=== PATIENT | female | born 1975 | race Caucasian/White ===

== ENCOUNTER 2017-08-12 18:59 | Emergency (ER) | payer MEDICAID ==
[2017-08-12 19:12] VITALS: BP 147/74; PULSE 79; RESP 18; TEMP 97.9; O2SAT 100
[2017-08-12] MEDS ORDERED: REME15TA PO (19:20)
[2017-08-12] MEDS ORDERED: PAXI30TA7 PO (19:20)
[2017-08-12] MEDS ORDERED: CLON1 PO (19:20)
[2017-08-12] MEDS ORDERED: TRAZ50TA12 PO (19:20)
[2017-08-12 19:51] LABS: AUTOMATED NEUTROPHIL # 8.6 TH/MM3 (1.8-7.7); BASOPHIL % 0.4 % (0.0-2.0); EOSINOPHIL % 0.1 % (0.0-4.0); HEMATOCRIT 40.4 % (35.0-46.0); HEMOGLOBIN 13.2 GM/DL (11.6-15.3); LYMPHOCYTE # 1.3 TH/MM3 (1.0-4.8); MEAN CELL VOLUME 88.6 FL (80.0-100.0); MEAN CORPUSCULAR HGB CONC 32.7 % (32.0-36.0); MEAN PLATELET VOLUME 8.5 FL (7.0-11.0); MONO % 7.6 % (0.0-8.0); MONOCYTE # 0.8 TH/MM3 (0-0.9); NEUT % 79.9 % (16.0-70.0); PLATELET COUNT 258 TH/MM3 (150-450); RED BLOOD COUNT 4.56 MIL/MM3 (4.00-5.30); RED CELL DISTRIBUTION WIDTH 15.2 % (11.6-17.2); WHITE BLOOD COUNT 10.7 TH/MM3 (4.0-11.0)
[2017-08-12 19:54] VITALS: BP 139/88; PULSE 72; RESP 16; O2SAT 99
[2017-08-12 20:03] LABS: BICARBONATE 23.1 MEQ/L (21.0-32.0); BLOOD UREA NITROGEN 9 MG/DL (7-18); CALCIUM 8.6 MG/DL (8.5-10.1); CHLORIDE 99 MEQ/L (98-107); GLOMERULAR FILTRATION RATE 79 ML/MIN (>89); GLUCOSE,RANDOM 77 MG/DL (74-106); SODIUM (NA) 134 MEQ/L (136-145)
[2017-08-12 20:09] LABS: TROPONIN I LESS THAN 0.02 NG/ML (0.02-0.05)
[2017-08-12] MEDS ORDERED: POTASSIUM CHLORIDE 10 MEQ CONTROLLED RELEASE TAB PO ONE (20:15)
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
[2017-08-12 21:10] LABS: ALBUMIN 4.2 GM/DL (3.4-5.0); ALT (GPT) 22 U/L (10-53); AST (GOT) 27 U/L (15-37); BICARBONATE 22.1 MEQ/L (21.0-32.0); BLOOD UREA NITROGEN 9 MG/DL (7-18); CALCIUM 8.6 MG/DL (8.5-10.1); CHLORIDE 99 MEQ/L (98-107); CREATININE 0.81 MG/DL (0.50-1.00); GLOMERULAR FILTRATION RATE 78 ML/MIN (>89); GLUCOSE,RANDOM 75 MG/DL (74-106); SODIUM (NA) 135 MEQ/L (136-145)
[2017-08-12 21:13] LABS: ALKALINE PHOSPHATASE 97 U/L (45-117); TOTAL BILIRUBIN ADULT 0.4 MG/DL (0.2-1.0); TOTAL PROTEIN 7.5 GM/DL (6.4-8.2)
--- NOTE | 2017-08-12 21:58 | RADRPT ---
EXAM DATE/TIME: 08/12/2017 20:47 [place] COMPARISON: No previous studies available for comparison. INDICATIONS : Heart Palpitations MEDICAL HISTORY : None. SURGICAL HISTORY : None. ENCOUNTER: Initial ACUITY: 1 day PAIN SCORE: 6/10 LOCATION: Bilateral chest FINDINGS: A single view of the chest demonstrates the lungs to be symmetrically aerated without evidence of mas s, infiltrate or effusion. The cardiomediastinal contours are unremarkable. Osseous structures are intact. CONCLUSION: Normal one view chest x-ray. Clay Hines MD on August 12, 2017 at 21:55 Board Certified Radiologist. This report was verified electronically.
[2017-08-13] MEDS ORDERED: clonazePAM 1 MG TAB PO ONE (02:00)
[2017-08-13 02:09] LABS: BACTERIA, URINE MANY /hpf; BILIRUBIN, URINE NEG (NEG); BLOOD, URINE TRACE (NEG); GLUCOSE,URINE NEG (NEG); KETONE, URINE 40 mg/dL (NEG); MUCUS URINE FEW /lpf (OCC); NITRITE,URINE NEG (NEG); SQUAMOUS EPITHELIAL CELL URINE 3 /hpf (0-5); URINE COLOR YELLOW (YELLW/STRAW); URINE LEUKOCYTE ESTERASE LARGE (NEG)
[2017-08-13] MEDS ORDERED: IBUPROFEN 600 MG TAB PO ONE (02:15)
[2017-08-13] MEDS ORDERED: SULFAMETHOXAZOLE-TRIMETHOPRIM DS 800-160 MG TAB PO ONE (02:30)
[2017-08-13] MEDS ORDERED: ONDANSETRON HCL 4 MG/2 ML VIAL IV PUSH ONE (05:00)
[2017-08-13] MEDS ORDERED: traZODone HCL 50 MG TAB PO ONE (05:00)
[2017-08-13] MEDS ORDERED: ONDANSETRON ODT 4 MG TAB PO ONE (05:15)
[2017-08-13 08:59] VITALS: BP 134/86; PULSE 67; RESP 15; TEMP 98.1; O2SAT 98
[2017-08-13 13:41] VITALS: BP 142/82; PULSE 78; RESP 18; O2SAT 96
[2017-08-13] MEDS ORDERED: NICOTINE 21 MG/24 HR PATCH T-DERMAL ONE (15:00)
--- NOTE | 2017-08-13 17:14 | EKG ---
Date Performed: 08/12/2017 Time Performed: 19:36:39 PTAGE: 42 years EKG: Sinus rhythm WITH SINUS ARRHYTHMIA PROLONGED QT INTERVAL ABNORMAL ECG NO PREVIOUS TRACING DOCTOR: Efra Ramirez Interpretating Date/Time 08/13/2017 17:12:33
[2017-08-14 07:12] VITALS: BP 133/72; PULSE 92; RESP 16; TEMP 100.5; O2SAT 96
[2017-08-14] MEDS ORDERED: clonazePAM 1 MG TAB PO ONE ×2 (09:45→14:30)
[2017-08-14] MEDS ORDERED: PARoxetine HCL 20 MG TAB PO ONE (09:45)
[2017-08-14 14:15] VITALS: BP 122/74; PULSE 99; RESP 18; TEMP 98.1; O2SAT 96
--- NOTE | 2017-08-14 14:30 | PD ---
History of Present Illness Chief Complaint: Chest Pain Time Seen by Provider: 14:15 Travel History International Travel<30 Days: No Contact w/Intl Traveler<30days: No Known affected area: No Legal Status Legal Status: Voluntary History of Present Illness: 42-year-old presents after going to the airport and claiming she wanted to shoot herself in the head. Patient is drug seeking at this time, requesting 1 mg of Klonopin because she usually takes it 3 times a day, even though she was drinking alcohol with it yesterday. Patient has parents who live nearby and the boyfriend in [place] who she says will pick her up. She denies any suicidal or homicidal ideation, plan or intent at this moment but states she did make the threat at the airport. She takes other medicines in addition to the benzodiazepines, including Paxil, Neurontin, etc. When confronted with the fact that she was drinking at the airport, the patient's excuse was that she doesn't usually drink like that. This physician offered her transportation to [facility] for alcohol abuse treatment but the patient declines. She is willing to go to her parents and back to [place] after receiving 1 mg of Klonopin. Cognition is intact and she has no psychotic symptoms. She is dom for safety and she is competent to do so. [facility] Past Medical History Anxiety: Yes ?: Not Past Surgical History Surgical History: No Previous Surgery Psychiatric History Psychiatric History Hx Psychiatric Treatment: Patient is disinclined to provide psychiatric history but does give the name of her provider who has her on current psychotropic medicines. This person is in the [place] area. History of Inpatient Treatment: No Guns or firearms in home: No Social History Hx Alcohol Use: Yes Hx Tobacco Use: Yes Hx Substance Use: Yes Substance Use Type: Marijuana, Cocaine, LSD-Mescaline Other Substances Used: Patient states she "experimented with many drugs " during college. Hx of Substance Use Treatment: No Allergies-Medications (Allergen,Severity, Reaction): Coded Allergies: No Known Allergies (Verified Allergy, Unknown, 08/12/17) Reported Meds & Prescriptions Reported Meds & Active Scripts Active Reported Klonopin (Clonazepam) 1 Mg Tab 1 Mg PO BID Remeron (Mirtazapine) 15 Mg Tab 15 Mg PO HS Trazodone (Trazodone HCl) 50 Mg Tab 50 Mg PO HS Paxil (Paroxetine HCl) 30 Mg Tab 30 Mg PO DAILY Review of Systems Except as stated in HPI: all other systems reviewed are Neg Mental Status Examination Appearance: Appropriate Consciousness: Alert Orientation: x4 Motor Activity: Normal gait Speech: Unremarkable Language: Adequate Fund of Knowledge: Adequate Attention and Concentration: Adequate Memory: Unremarkable Mood: Appropriate Affect: Appropriate Thought Process & Associations: Intact Thought Content: Appropriate Hallucination Type: None Delusion Type: None Suicidal Ideation: No Suicidal Plan: No Suicidal Intention: No Homicidal Ideation: No Homicidal Plan: No Homicidal Intention: No Insight: Adequate Judgment: Adequate MDM Medical Decision Making Medical Record Reviewed: Yes Assessment/Plan Patient interviewed at bedside. Electronic medical record reviewed. Case discussed with nurse Beckwith. This physician does not feel the patient meets [place]erra act criteria or criteria for psychiatric hospitalization. As stated above , the patient comes across as drug seeking and manipulative. Orders Orders Nicotine 21 Mg Patch.24 Hr (Habitrol 21 (08/13/17 15:00) Diet Regular Basic (08/14/17 Breakfast) Clonazepam (Klonopin) (08/14/17 09:45) Paroxetine (Paxil) (08/14/17 09:45) Diet Regular Basic (08/14/17 Lunch) Clonazepam (Klonopin) (08/14/17 14:30) Results Vital Signs Date Time Temp Pulse Resp B/P (MAP) Pulse Ox O2 Delivery O2 Flow Rate FiO2 08/14/17 14:15 98.1 99 18 122/74 (90) 96 Room Air 08/14/17 07:12 100.5 92 16 133/72 (92) 96 Room Air Date/Time Source Procedure Growth Status 08/13/17 01:18 Urine Clean Catch Urine Culture Pending Worksheet Diagnosis Primary Impression: Alcohol abuse Condition: Stable Tripp Castro MD Aug 14, 2017 14:30
--- NOTE | 2017-08-14 14:46 | PD ---
Physical Exam Date Seen by Provider: Aug 14, 2017 Narrative 42-year-old female presented to the emergency department complaining of suicidal ideations. Patient was medical cleared to see psych. Dr. Castro evaluated the patient and pt does not meet inpatient criteria. She is discharged advised to adhere to instructions given by psych. Adelfo SI/HI. Data Data Last Documented VS Vital Signs Date Time Temp Pulse Resp B/P (MAP) Pulse Ox O2 Delivery O2 Flow Rate FiO2 08/14/17 14:15 98.1 99 18 122/74 (90) 96 Room Air Orders Orders Electrocardiogram (08/12/17 19:23) Complete Blood Count With Diff (08/12/17 19:23) Basic Metabolic Panel (Bmp) (08/12/17 19:23) Ckmb (Isoenzyme) Profile (08/12/17 19:23) Troponin I (08/12/17 19:23) Iv Access Insert/Monitor (08/12/17 19:23) Ecg Monitoring (08/12/17:) Oxygen Administration (08/12/17:) Oximetry (08/12/17:) CKMB (08/12/17 19:25) CKMB% (08/12/17 19:25) Comprehensive Metabolic Panel (08/12/17 20:06) Urinalysis - C+S If Indicated (08/12/17 20:06) Psych Screen (08/12/17 20:06) Drug Screen, Random Urine (08/12/17 20:06) Alcohol (Ethanol) (08/12/17 20:06) Potassium Chloride (Kcl) (08/12/17 20:15) Chest, Single Ap (08/12/17 ) Ed Urine Pregnancytest Poc (08/12/17 20:37) Clonazepam (Klonopin) (08/13/17 02:00) Ibuprofen (Motrin) (08/13/17 02:15) Urine Culture (08/13/17 01:18) Sulfamet-Trimeth Ds 800-160 Mg (Bactrim (08/13/17 02:30) Trazodone (Desyrel) (08/13/17 05:00) Ondansetron Odt (Zofran Odt) (08/13/17 05:15) Nicotine 21 Mg Patch.24 Hr (Habitrol 21 (08/13/17 15:00) Diet Regular Basic (08/14/17 Breakfast) Clonazepam (Klonopin) (08/14/17 09:45) Paroxetine (Paxil) (08/14/17 09:45) Diet Regular Basic (08/14/17 Lunch) Clonazepam (Klonopin) (08/14/17 14:30) Ed Discharge Order (08/14/17 14:48) Labs Laboratory Tests Test 08/12/17 19:25 08/13/17 01:18 White Blood Count 10.7 TH/MM3 Red Blood Count 4.56 MIL/MM3 Hemoglobin 13.2 GM/DL Hematocrit 40.4 % Mean Corpuscular Volume 88.6 FL Mean Corpuscular Hemoglobin 29.0 PG Mean Corpuscular Hemoglobin Concent 32.7 % Red Cell Distribution Width 15.2 % Platelet Count 258 TH/MM3 Mean Platelet Volume 8.5 FL Neutrophils (%) (Auto) 79.9 % Lymphocytes (%) (Auto) 12.0 % Monocytes (%) (Auto) 7.6 % Eosinophils (%) (Auto) 0.1 % Basophils (%) (Auto) 0.4 % Neutrophils # (Auto) 8.6 TH/MM3 Lymphocytes # (Auto) 1.3 TH/MM3 Monocytes # (Auto) 0.8 TH/MM3 Eosinophils # (Auto) 0.0 TH/MM3 Basophils # (Auto) 0.0 TH/MM3 CBC Comment DIFF FINAL Differential Comment Blood Urea Nitrogen 9 MG/DL Creatinine 0.81 MG/DL Random Glucose 75 MG/DL Total Protein 7.5 GM/DL Albumin 4.2 GM/DL Calcium Level 8.6 MG/DL Alkaline Phosphatase 97 U/L Aspartate Amino Transf (AST/SGOT) 27 U/L Alanine Aminotransferase (ALT/SGPT) 22 U/L Total Bilirubin 0.4 MG/DL Sodium Level 135 MEQ/L Potassium Level 3.3 MEQ/L Chloride Level 99 MEQ/L Carbon Dioxide Level 22.1 MEQ/L Anion Gap 14 MEQ/L Estimat Glomerular Filtration Rate 78 ML/MIN Total Creatine Kinase 410 U/L Creatine Kinase MB 2.1 NG/ML Creatine Kinase MB % 0.5 % Troponin I LESS THAN 0.02 NG/ML Ethyl Alcohol Level 78 MG/DL Urine Color YELLOW Urine Turbidity HAZY Urine pH 6.0 Urine Specific [place] 1.010 Urine Protein TRACE mg/dL Urine Glucose (UA) NEG mg/dL Urine Ketones 40 mg/dL Urine Occult Blood TRACE Urine Nitrite NEG Urine Bilirubin NEG Urine Urobilinogen 2.0 MG/DL Urine Leukocyte Esterase LARGE Urine RBC 4 /hpf Urine WBC 5 /hpf Urine Squamous Epithelial Cells 3 /hpf Urine Bacteria MANY /hpf Urine Mucus FEW /lpf Microscopic Urinalysis Comment CULTURE INDICATED Urine Opiates Screen NEG Urine Barbiturates Screen NEG Urine Amphetamines Screen NEG Urine Benzodiazepines Screen NEG Urine Cocaine Screen POS Urine Cannabinoids Screen POS MDM Supervised Visit with [facility]: No Diagnosis Primary Impression: Alcohol abuse Condition: Stable JusticeYoko Aug 14, 2017 14:46
== END 2017-08-14 15:09 | disposition home or self-care (01) ==
LOC: NEPE 18:59 → NEPJ 08-14 15:09
DX: F10.10 Alcohol abuse, uncomplicated (principal); R44.0 Auditory hallucinations; R44.1 Visual hallucinations; R45.851 Suicidal ideations; F41.9 Anxiety disorder, unspecified; I49.9 Cardiac arrhythmia, unspecified; I45.81 Long QT syndrome; R94.31 Abnormal electrocardiogram [ECG] [EKG]; Z72.0 Tobacco use
CPT/HCPCS: 71045; 80048; 80053; 80307; 81001; 82550; 82552; 84484; 84703; 85025; 87086; 93005